=== PATIENT | female | born 1975 | race African-American/Black ===

== ENCOUNTER 2024-01-18 09:09 | Observation (INO) ==
[2024-01-18] MEDS ORDERED: oxyCODONE SR 10 mg TAB ONE (09:34)
[2024-01-18] MEDS ORDERED: Ondansetron 4 mg VIAL 2 MG/ML 2 ml VIAL ONE (09:34)
[2024-01-18] MEDS ORDERED: Scopolamine 1 mg/72hr PATCH ONE (09:34)
[2024-01-18] MEDS: NS 0.9% 1000 ml BAG 500 ML IV ONE (10:10)
[2024-01-18] MEDS: oxyCODONE SR 10 mg TAB PO ONE (11:10)
[2024-01-18] MEDS: Ondansetron 4 mg VIAL 2 MG/ML 2 ml VIAL IV ONE (11:10)
[2024-01-18] MEDS ORDERED: Lidocaine 1% VIAL 10 MG/ML 30 ML VIAL ONE (11:10)
[2024-01-18] MEDS: Scopolamine 1 mg/72hr PATCH TRANSDERM ONE (11:10)
[2024-01-18] MEDS ORDERED: Heparin 2 UNITS/ML IVPREMIX 3,000 UNIT/1,500 ML BAG IV ONE (11:11)
[2024-01-18] MEDS ORDERED: Midazolam 5 mg/5 ml VIAL 1 mg/ml 5 ml VIAL (5 mg) ONE (11:25)
[2024-01-18] MEDS ORDERED: fentaNYL 100 mcg/2 ml 50 MCG/ML VIAL ONE ×2 (11:25→12:40)
[2024-01-18 11:29] LABS: HCG Pregnancy < 0.60 mIU/mL
[2024-01-18] MEDS ORDERED: nitroGLYCERIN DRIP 25,000 MCG/250 ML BTL ONE (11:32)
[2024-01-18] MEDS: Clindamycin 900 MG/50 **NS BAG 900 MG/50 ML BAG IV ONE (11:35)
[2024-01-18] MEDS ORDERED: Iohexol 350 (CONTRAST) 100 ML PAK IV ONE ×3 (11:38→12:50)
[2024-01-18 11:42] LABS: Anion Gap 13 mmol/L (2-16); Blood Urea Nitrogen 13 mg/dL (6-24); CO2 Carbon Dioxide 19 mmol/L (22-32); Calcium 9.1 mg/dL (8.6-10.3); Chloride 103 mmol/L (101-111); Creatinine, Serum 0.75 mg/dL (0.51-0.95); Glucose 95 mg/dL (70-100); Sodium 135 mmol/L (135-145); eGFR CKD-EPI 97.5 (>60)
[2024-01-18 12:05] LABS: Activated Partial Thrombo Time 25.2 seconds (26.0-38.0); INR 0.96 (0.83-1.13)
[2024-01-18] MEDS ORDERED: Naloxone 0.4 mg VIAL 0.4 mg/ml 1 ml VIAL IV PUSH PRN (12:34)
[2024-01-18] MEDS ORDERED: HYDROmorphone 0.5 MG/0.5 ML SYRINGE ONE (13:01)
[2024-01-18] MEDS ORDERED: Heparin 2 UNITS/ML IVPREMIX 1,000 UNIT/500 ML BAG IV ONE (13:11)
[2024-01-18] MEDS: HYDROmorphone PCA 20 MG/20 ML PCA.SYRING PCA SCH (14:14)
[2024-01-18] MEDS: Ondansetron 4 mg VIAL 2 MG/ML 2 ml VIAL IV SCH (18:10)
[2024-01-18] MEDS: NS 0.9% 1000 ml BAG 1,000 ML IV SCH (18:11)
[2024-01-18 20:24] LABS: ABS Lymphocytes 0.4 10^3/uL (1.0-4.8); ABS Monocytes 0.1 10^3/uL (0.0-0.9); Hematocrit 35.2 % (35-45); Hemoglobin 11.6 g/dL (11.5-14.3); Lymphocyte % 5.1 %; Mean Corpuscular Hemoglobin 29.1 pg (27-33); Mean Corpuscular Hgb Conc 33.1 g/dL (31-36); Mean Platelet Volume 8.6 fL (7.5-11.2); Nucleated Red Blood Cells % 0.1 %/100WBC (0.0-0.8); Platelet Count 340 10^3/uL (150-450); Red Blood Count 3.99 10^6/uL (3.63-4.92); Red Cell Distribution Width 13.8 % (12-17); White Blood Count 7.5 10^3/uL (3.8-11.8)
[2024-01-19] MEDS ORDERED: HYDROcodone/ACETAMIN 5/325 mg TAB PO PRN (09:21)
[2024-01-19] MEDS: Ketorolac 10 mg TAB (NF) PO SCH (11:28)
[2024-01-19 12:56] VITALS: BP 137/95
== END 2024-01-19 13:20 | disposition home or self-care (01) ==
LOC: SSU 09:09 → CHICATH 09:09
PROVIDERS: ADMIT Internal Medicine; ATTEND Internal Medicine
PROC: ANG.UFE (2024-01-18 11:15)